=== PATIENT | female | born 1925 | race Caucasian/White ===

== ENCOUNTER → 2016-06-08 16:21 | Outpatient (CLI) | payer MEDICARE, BC ==
[2014-06-25 12:56] VITALS: BMI 19.6
[~2016-06-08 16:21] MED LIST: ACEBUTOLOL HCL200 MG PO; ARICEPT5 MG PO; ATIVAN0.5 MG PO; BAYER CHEWABLE81 MG PO; CARDIZEM CD240 MG PO; CORDARONE200 MG PO; LASIX20 MG PO; MELATONIN 3 MG1 TAB PO; MULTAQ400 MG PO; PLAVIX75 MG PO; PRADAXA75 MG PO; TOPROL XL100 MG PO; TRIAMTERENE-HCT1 TA1 PO; TRIGLIDE160 MG PO; ULTRAM50 MG PO; ZESTRIL20 MG PO
== END | disposition home or self-care (01) ==
LOC: D.US 16:21
DX: R60.0 Localized edema (principal); M79.604 Pain in right leg